=== PATIENT | male | born 1990 | race Caucasian/White ===

== ENCOUNTER → 2017-03-31 | Outpatient (CLI) | payer OTHER, BC | END | disposition home or self-care (01) | LOC: PCVCIMAG 10:26 | DX: I10 Essential (primary) hypertension (principal); I48.91 Unspecified atrial fibrillation; Z82.49 Family history of ischemic heart disease and other diseases of the circulatory system; Z72.0 Tobacco use | CPT/HCPCS: 36415; 80061; 93325; 93351 ==